=== PATIENT | male | born 1955 | race Caucasian/White ===

== ENCOUNTER → 2017-07-07 | Day surgery (SDC) | payer OTHER ==
[~2017-07-07] MED LIST: BALANCED SALT SOLN OPHT IRRIG 15 ML BTL ONE; DEXAMETHASONE SOD PHOS 4 MG/ML VIAL ONE; EPINEPHrine HCL (1:1000) 1 MG/ML VIAL ONE; HYALURONIDASE/LIDOCAINE/BUPIVACAINE 5 ML SYR ONE; KETOROLAC TROMETHAMINE 0.5% OPHT SOLN 5 ML BTL ONE; LACTATED RINGER'S 1000 ML INJ 1,000 ML ONE; NEOMYCIN/POLYMYXIN/DEXAMETHASONE OPTH OINT 3.5 GM TUBE ONE; PHENYLEPHRINE HCL 2.5 % OPTH SOLN 15 ML BTL ONE; PROPOFOL 200 MG/20 ML AMP IV ONE; SODIUM CHLORIDE 0.9% INJ 10 ML ONE; TETRACAINE 0.5% OPTH SOLN 15 ML BTL ONE; TRIAMCINOLONE ACETONIDE 40 MG/ML VIAL ONE; TROPICAMIDE 1% OPHT SOLN 15 ML BTL ONE; ceFAZolin INJ 1,000 MG VIAL ONE
--- NOTE | 2017-07-13 20:03 | MP ---
cc: DAVID GAN MD DATE OF SURGERY: 07/07/2017. PREOPERATIVE DIAGNOSIS: 1. Retinal detachment, left eye. 2. Previous proliferative vitreoretinopathy with retinal detachment. POSTOPERATIVE DIAGNOSIS: 1. Retinal detachment, left eye. 2. Previous proliferative vitreoretinopathy with retinal detachment. OPERATIVE PROCEDURE PERFORMED: Pars plana vitrectomy, silicone oil removal, membrane peeling, endolaser gas/fluid exchange, left eye. SURGEON: David Gan MD ANESTHESIA: MAC. COMPLICATIONS: None. DESCRIPTION OF THE PROCEDURE IN DETAIL: After informed consent was obtained, the patient was brought to the operating room and placed under brief anesthesia with propofol. 10 cc of a 50/50 mixture of 0.75% Marcaine, 2% lidocaine were placed in a modified Van Lint block as well as a peribulbar injection. The patient was then prepared and draped in the usual sterile fashion. A wire lid speculum was placed in the patient's left eye. 23-gauge vitrectomy cannulas were then placed in the lower temporal, supratemporal and supranasal quadrants 3 mm posterior to the corneoscleral limbus. An infusion cannula was placed lower temporally. The silicone oil was then removed. The vitrector was used to remove some of the silicone oil droplets. There was a small area where the retina had traction inferiorly and retinectomy was performed in this site. Complete air/fluid exchange was performed and laser was placed in this area to seal it. There were no other areas of proliferative vitreoretinopathy noted. The air was then exchanged for a 16% C3F8. The three vitrectomy cannulas were then removed. Subconjunctival injections of dexamethasone and Ancef were placed. An atropine drop, Maxitrol ointment and a patch and shield were then applied. The patient tolerated the procedure well. There were no complications. He will remain on his side for the next week. [facility]. David Gan MD TAB/JCC /1:26 PM /7:56 PM
== END | disposition home or self-care (01) ==
LOC: ESDC 11:34
PROVIDERS: ATTEND Ophthalmology Retina Specialist
DX: H33.42 Traction detachment of retina, left eye (principal)
CPT/HCPCS: 00145; 67108; J0171; J0690; J1100; J7120; J3301